=== PATIENT | male | born 1965 ===

== ENCOUNTER 2018-02-19 08:49 | Outpatient (CLI) | payer OTHER | END 2018-02-19 08:54 | disposition home or self-care (01) | LOC: SONOGRAMA 08:49 | DX: R22.1 Localized swelling, mass and lump, neck (principal) ==

== ENCOUNTER 2019-10-17 07:21 | Outpatient (CLI) | payer OTHER | END 2019-10-17 07:26 | disposition home or self-care (01) | LOC: TOM 07:21 | DX: C05.1 Malignant neoplasm of soft palate (principal) ==

== ENCOUNTER 2020-04-16 07:56 | Outpatient (CLI) | payer OTHER | END 2020-04-16 08:06 | disposition home or self-care (01) | LOC: NUCLEAR 07:56 | DX: C05.1 Malignant neoplasm of soft palate (principal) | CPT/HCPCS: 78815; A9552 ==

== ENCOUNTER 2020-04-28 07:54 | Outpatient (CLI) | payer OTHER | END 2020-04-28 08:01 | disposition home or self-care (01) | LOC: LAB 07:54 | PROVIDERS: ATTEND Radiology Diagnostic Radiology | DX: C10.8 Malignant neoplasm of overlapping sites of oropharynx (principal) | CPT/HCPCS: 70543 ==